=== PATIENT | male | born 1985 | race Caucasian/White ===

== ENCOUNTER 2018-08-10 18:55 | Emergency (ER) | payer MEDICAID ==
[~2018-08-10] VITALS: Ht 185.4 cm; Wt 92.5 kg
[2018-08-10 19:30] VITALS: BP 121/81
--- NOTE | 2018-08-10 19:45 | NUR ---
ED Nurse Note: fall yest at [facility] and c/o right ankle pain. pt arrives via [facility] comes from [facility]. has bilateral calcaneous fractures and L2 fx per ems. pulse and sensation noted on both injured ankles. no active bleeding noted. cap refill less than three. fall precautions taken place. pt informed not to ambulate out of bed untill further notice.
[2018-08-10 21:23] VITALS: BP 119/79
--- NOTE | 2018-08-10 22:10 | Emergency Room Report ---
History of Present Illness General Chief Complaint: Lower Extremity Injury Source: Patient, Medical Record Present Illness HPI [facility]. He suffered a fall 17 feet. At that time he suffered bilateral calcaneus fractures and an L2 compression fracture. This occurred in mid July. The patient has been in a penitentiary facility for the past week. Today when he was using the restroom he leans onto the restroom sink and the sink gave way and he fell to the ground. He states that this aggravated his back pain. He also twisted his right ankle. He denies head trauma or injury. He denies neck pain. He has no other complaints. Allergies: Coded Allergies: No Known Allergies (Unverified , 08/10/18) Patient History Past Medical History: see triage record, other - Hx of polysubstance abuse Social History: Reports: drug use - HX of polysubstance abuse.; Denies: smoking , alcohol use Reviewed Nursing Documentation: PMH: Agreed; PSxH: Agreed Nursing Documentation-PMH Past Medical History: No History, Except For History Of Psychiatric Problem: Yes - anxiety, insomnia, substance abuse, depression Review of Systems All Other Systems: negative except mentioned in HPI Physical Exam Vital Signs Date Time Temp Pulse Resp B/P (MAP) Pulse Ox O2 Delivery O2 Flow Rate FiO2 08/10/18 19:07 98.1 124 20 158/88 98 Room Air Sp02 EP Interpretation: reviewed, normal General Appearance: no apparent distress, alert, GCS 15, non-toxic Head: normocephalic, atraumatic Eyes: bilateral eye normal inspection, bilateral eye PERRL ENT: hearing grossly normal, normal pharynx, no angioedema, normal voice Neck: full range of motion, supple/symm/no masses Respiratory: chest non-tender, lungs clear, normal breath sounds, no respiratory distress, no retraction, no accessory muscle use, speaking full sentences Cardiovascular #1: regular rate, rhythm, no edema Gastrointestinal: normal bowel sounds, non tender, soft, non-distended, no guarding, no rebound Rectal: deferred Musculoskeletal: normal range of motion, other - TTP along the Lumbar spine Neurologic: alert, oriented x3, responsive, motor strength/tone normal, sensory intact, speech normal Psychiatric: judgement/insight normal, memory normal, mood/affect normal, no suicidal/homicidal ideation Skin: normal color, no rash, warm/dry, well hydrated Medical Decision Making Diagnostic Impression: Primary Impression: Fall ER Course This patient has a known history of a lumbar compression fracture. Given the fall, I did obtain a lumbar spine CT and there are no new findings. Also, the right ankle x-ray is negative. There is findings of the old calcaneus fracture. There does not appear to be any new injuries. The patient is returned to the penitentiary facility. Other X-Ray Diagnostic Results Other X-Ray Diagnostic Results : X-Ray ordered: R. ankle, R. foot xray # of Views/Limited Vs Complete: Complete Indication: Pain EP Interpretation: Yes Interpretation: no dislocation, no soft tissue swelling, other - No acute fracture Impression: No acute disease Electronically Signed by: Elana Arias DO CT/MRI/US Diagnostic Results CT/MRI/US Diagnostic Results : Imaging Test Ordered: CT Lumbar spine Impression No acute findings. See official report. Last Vital Signs Date Time Temp Pulse Resp B/P (MAP) Pulse Ox O2 Delivery O2 Flow Rate FiO2 08/10/18 21:23 98.0 70 13 119/79 99 08/10/18 19:07 Room Air Disposition: XFER SNF Condition: Stable Referrals: Anselmo So MD (PCP) Elana Arias DO Aug 10, 2018 22:10
[2018-08-10 22:15] VITALS: BP 118/75
--- NOTE | 2018-08-10 22:15 | NUR ---
ED Nurse Note: PT is transfered to [facility] to [facility]. pt has left with all belongings. pt vital signs, status and condition was reported to receving RN, ERMD, and EMS during transfer. pt stable for transfer. pt vital signs are stable and pt is alert and oriented times 4.
--- NOTE | 2018-08-11 10:17 | Diagnostic Imaging Report ---
Indications: Fall, trauma, pain Technique: Spiral acquisitions obtained through the lumbar spine. Multiplanar reconstructions were generated. No IV contrast utilized. Total dose length product 545.43 mGycm. CTDIvol(s) 15.64 mGy. Dose reduction achieved using automated exposure control Comparison: none Findings: There is an anterior wedge compression fracture of the L3 vertebral body. Fracture lines and minimal surrounding soft tissue swelling are present indicating likely acuity. However, there is also some sclerosis which could indicate a chronic component. This results in approximately 40% height loss. There is equivocally very slight posterior retropulsion of the posterior wall and there is slight loss of height posteriorly. There is no evidence of posterior element fracture. The remaining vertebral body heights are preserved. No other acute fractures or dislocations. The bony alignment is normal. There are multiple intravertebral disc herniations involving the T10-L2 vertebral bodies. No significant disc bulge or protrusion, spinal stenosis, or neural foraminal stenosis. The included extraspinal soft tissues are unremarkable. Impression: L3 wedge compression fracture, with slight posterior retropulsion. Per ER report in the electronic medical record, patient has known history of lumbar compression fracture. However, the possibility of superimposed acute on chronic findings fully ruled out, and MRI should be considered if clinically indicated. No other acute bony trauma This agrees with the preliminary interpretation provided overnight by Dr. Gillespie The CT scanner at [facility] is accredited by the [employer] and the scans are performed using protocols designed to limit radiation exposure to as low as reasonably achievable to attain images of sufficient resolution adequate for diagnostic evaluation.
--- NOTE | 2018-08-11 12:13 | Diagnostic Imaging Report ---
Indication: Pain, status post fall Technique: 3 views right foot Comparison: none Findings: Splint obscures bony detail. There is a comminuted fracture of the calcaneus. No other fractures are demonstrated. Joint spaces are preserved Impression: Calcaneal fracture, per electronic medical record occurred one month prior. No evidence of acute injury
--- NOTE | 2018-08-11 12:49 | Diagnostic Imaging Report ---
Indication: Pain, trauma, status post fall Technique: 3 views of the right ankle Comparison: None Findings: Overlying plaster splint obscures bony detail. There is soft tissue swelling over the lateral malleolus. There is a calcaneal fracture. Impression: Calcaneal fracture. Per electronic medical record, this has been diagnosed previously No other evidence of acute injury
== END 2018-08-10 22:20 ==
LOC: EDBD 18:55 → EMR 19:30
DX: M54.9 Dorsalgia, unspecified (principal); W18.39XA Other fall on same level, initial encounter; X50.1XXA Overexertion from prolonged static or awkward postures, initial encounter; Z91.81 History of falling; Y92.121 Bathroom in nursing home as the place of occurrence of the external cause; Z87.81 Personal history of (healed) traumatic fracture; F19.11 Other psychoactive substance abuse, in remission; Z87.898 Personal history of other specified conditions
CPT/HCPCS: 72131; 99284